=== PATIENT | female | born 1960 | race Caucasian/White ===

== ENCOUNTER 2020-06-24 07:22 | Outpatient (REF) | payer OTHER, SELFPAY ==
--- NOTE | ~2020-06-24 | MM_ITS ---
EXAMINATION: MM SCREENING DIGITAL BREAST TOMOSYNTHESIS, BILATERAL CLINICAL INFORMATION: Screening. Asymptomatic. Personal history left breast cancer 2006. COMPARISON: Mammography: 06/19/2019, 06/08/2018, 05/25/2017 TECHNIQUE: Digital breast tomosynthesis is performed in both the craniocaudal and mediolateral oblique views along with computer-aided detection (CAD). Synthesized 2D images are generated from the tomosynthesis. FINDINGS: There are scattered areas of fibroglandular density (ACR BI-RADS breast composition Category b). There are no significant masses, abnormal calcifications, or other abnormalities. Parenchymal pattern is similar to prior studies. Again, there are regional punctate calcifications central and upper right breast with biopsy clip marker. The axilla and skin contours are unremarkable. MM/MM tomosynthesis screening BI IMPRESSION: No mammographic evidence of malignancy. ASSESSMENT: BI-RADS 2: Benign RECOMMENDATION: Routine annual mammography screening. This patient's information was entered into a reminder system with a target due date for their next mammogram.
== END 2020-06-24 07:23 | disposition home or self-care (01) ==
LOC: HO.MAMMO 07:22
PROVIDERS: PCP Internal Medicine; Visit Provider Internal Medicine
DX: Z12.31 Encounter for screening mammogram for malignant neoplasm of breast (principal)
CPT/HCPCS: 77063; 77067

== ENCOUNTER 2020-09-18 09:39 | Day surgery (SDC) | payer OTHER, SELFPAY ==
[2020-09-14 10:45] VITALS: BMI 24.4
--- NOTE | 2020-09-16 13:15 | P.CONAN_ITS ---
Documented by User: Veda Stapleton 09/16/20 13:16 HPI - Anesthesia Eval Consult details Narrative: 60yo F for Colonoscopy PMFSH Past Medical History Medical History COVID-19 vaccine series completed HX: breast cancer Mitral valve regurgitation Surgical History Surgical History History of lumpectomy of left breast History of surgery on arm Hx of colonoscopy Social History Social History Smoking Status: Never smoker Use of substances other than those prescribed or required for medical reasons: No Are you DNR?: No Advance Directives: No Advance Directives Information Provided: No Advance Directives on File: No Meds Allergies Allergy/AdvReac Type Severity Reaction Status Date / Time sulfamethoxazole AdvReac Intermediate ORAL THRUSH Verified 09/18/20 09:51 [From BACTRIM] trimethoprim [From BACTRIM] AdvReac Intermediate ORAL THRUSH Verified 09/18/20 09:51 Home Medications Medication Instructions Recorded Confirmed Last Taken Type alendronate 1 tab PO QWEEK 09/14/20 09/14/20 Unknown History calcium carbonate-vitamin D3 1 tab PO DAILY 09/14/20 09/14/20 Unknown History [Calcium 500 + D] glucosamine sulfate [Glucosamine] 1,000 mg PO DAILY 09/14/20 09/14/20 Unknown H istory ibuprofen 400 mg PO Q8H PRN 09/14/20 09/14/20 Unknown History multivitamin 1 tab PO DAILY 09/14/20 09/14/20 Unknown History trazodone 1 tab PO BEDTIME 09/14/20 09/14/20 Unknown History Exam Exam Date and Time: September 16, 2020 1315 Height,Weight and Vital Signs: Height 5 ft 5 in Weight 66.678 kg Assessment and Plan Assessment Anesthesia Assessment: Chart Reviewed Documented by User: Roxy Terrazas 09/18/20 11:08 [facility] Past Medical History Medical History COVID-19 vaccine series completed HX: breast cancer Mitral valve regurgitation Surgical History Surgical History History of lumpectomy of left breast History of surgery on arm Hx of colonoscopy Social History Social History Smoking Status: Never smoker Use of substances other than those prescribed or required for medical reasons: No Are you DNR?: No Advance Directives: No Advance Directives Information Provided: No Advance Directives on File: No Meds Allergies Allergy/AdvReac Type Severity Reaction Status Date / Time sulfamethoxazole AdvReac Intermediate ORAL THRUSH Verified 09/18/20 09:51 [From BACTRIM] trimethoprim [From BACTRIM] AdvReac Intermediate ORAL THRUSH Verified 09/18/20 09:51 Home Medications Medication Instructions Recorded Confirmed Last Taken Type alendronate 1 tab PO QWEEK 09/14/20 09/14/20 Unknown History calcium carbonate-vitamin D3 1 tab PO DAILY 09/14/20 09/14/20 Unknown History [Calcium 500 + D] glucosamine sulfate [Glucosamine] 1,000 mg PO DAILY 09/14/20 09/14/20 Unknown History ibuprofen 400 mg PO Q8H PRN 09/14/20 09/14/20 Unknown History multivitamin 1 tab PO DAILY 09/14/20 09/14/20 Unknown History trazodone 1 tab PO BEDTIME 09/14/20 09/14/20 Unknown History Exam Airway Mallampati Class: II TM Dist: >3cm Neck ROM: Full Assessment and Plan Assessment Anesthesia Assessment: Anesthesia Plan Discussed and Chart Reviewed Final Anesthetic Review NPO: Yes ASA Class: II Final Preanesthetic Review: No Changes in Pt Med Stat, Meds/Allgs Chart Reviewed, Consent Obtained/Reviewed and Anes Risks/Benef Reviewed Patient Risk: Low Procedure Risk: Low Assessment/Block/Sedation in SS: Assess/Block/Sedation-SS Anesthetic Plan Anesthetic Plan: MAC: Disposition: Standard PACU
[2020-09-18 10:24] VITALS: BP 114/86; PULSE 65; RESP 18; TEMP 37.1; O2SAT 96
[2020-09-18] MEDS: Lactated Ringers 1,000 ML 100 ML IVCONT (10:36)
[2020-09-18 11:43] VITALS: BP 110/59; PULSE 68; RESP 16; TEMP 36.5; O2SAT 100
--- NOTE | 2020-09-18 11:46 | P.BOP_ITS ---
Brief Operative Note Date of Service: 09/18/20 Pre-op diagnosis: Screening, Family history Post-op diagnosis: other (Diverticulosis, Internal hemorrhoids) Procedure: Colonoscopy to the cecum and TI Surgeon: Lito Metz Anesthesia: MAC Was an Accounts Supervisor used for this Procedure?: No Estimated blood loss (mL): 0 Pathology: none sent Condition: stable Disposition: PACU
[2020-09-18 11:58] VITALS: BP 114/68; PULSE 66; RESP 18; O2SAT 99
--- NOTE | 2020-09-18 12:08 | OP_ITS ---
SURGEON: Lito Metz MD INDICATIONS: The patient presents for evaluation of colorectal cancer screening and family history of colon cancer. Full consent has been obtained from her for this, including risks of bleeding and perforation. PREOPERATIVE DIAGNOSIS: POSTOPERATIVE DIAGNOSIS: PROCEDURE PERFORMED: Colonoscopy to the cecum and terminal ileum. ESTIMATED BLOOD LOSS: COMPLICATIONS: ANESTHESIA: Monitored anesthesia care. ASSISTANTS: SPECIMENS: PREOPERATIVE DIAGNOSES: Colorectal cancer screening and family history of colon cancer. POSTOPERATIVE DIAGNOSES: Colorectal cancer screening and family history of colon cancer, mild sigmoid diverticulosis, small internal hemorrhoids. DESCRIPTION OF PROCEDURE: The patient was placed in the left lateral decubitus position. The digital rectal exam revealed no abnormalities. The Olympus video pediatric colonoscope was entered into the rectum and advanced easily to the cecum. Once in the cecum, I did identify normal-appearing cecal pouch with appendiceal orifice and a normal-appearing ileocecal valve. The entire cecum and ileocecal valve appeared normal. The terminal ileum was cannulated and appeared normal. The scope was slowly withdrawn assessing all mucosal surfaces carefully. Preparation was excellent. I did not visualize any sign of polyps, colitis, nor angiodysplasia. There was a mild amount of sigmoid diverticulosis. In the rectum, scope was retroflexed visualizing internal hemorrhoids, but no other pathology. The rectal mucosa appeared normal. The scope was straightened out and withdrawn from the patient. She tolerated the procedure well and was returned to the recovery area in stable condition. IMPRESSION: 1. Mild sigmoid diverticulosis. 2. Small internal hemorrhoids. PLAN: Given her significant family history of her young brother having had colon cancer, I would recommend a followup colonoscopy in 5 years for further screening purposes. She will otherwise see me on a p.r.n. basis. MD NATHANIEL Faustin/YULIA / [id number]
== END 2020-09-18 12:30 | disposition home or self-care (01) ==
PROVIDERS: PCP Internal Medicine; Visit Provider Internal Medicine
PROC: 0DJD8ZZ Inspection of Lower Intestinal Tract, Via Natural or Artificial Opening Endoscopic (ICD-10-PCS; CPT 45378; principal; 2020-09-18 11:00)
DX: Z12.11 Encounter for screening for malignant neoplasm of colon (principal); Z80.0 Family history of malignant neoplasm of digestive organs; K57.30 Diverticulosis of large intestine without perforation or abscess without bleeding; K64.8 Other hemorrhoids; Z79.899 Other long term (current) drug therapy; Z85.3 Personal history of malignant neoplasm of breast; Z92.3 Personal history of irradiation; Z88.2 Allergy status to sulfonamides
CPT/HCPCS: 45378

== ENCOUNTER 2021-02-18 08:06 | Outpatient (REF) | payer OTHER, SELFPAY ==
--- NOTE | ~2021-02-18 | MM_ITS ---
EXAMINATION: BONE DENSITOMETRY CLINICAL INDICATION: Osteoporosis. COMPARISON: Previous BD dated 01/23/2019 and baseline BD dated 02/12/2007. TECHNIQUE: Using a [employer] DXA System (software version: 13.1) manufactured by [employer], dual-energy x-ray absorptiometry was performed of the lumbar spine and left hip. The images are of good technical quality. Summary results are attached. FINDINGS: AP SPINE L1-L4: Current: BMD 0.989 g/cm2, Z-score -0.5, T-score -1.6, osteopenia, 5.2% increase from previous, 8.9% decrease from baseline (<5% change is not significant). Prior: BMD 0.940 g/cm2. Baseline: BMD 1.086 g/cm2. LEFT FEMUR, NECK: Current: BMD 0.778 g/cm2, Z-score -0.7, T-score -1.9, osteopenia. Prior: BMD 0.745 g/cm2. Baseline: BMD 0.842 g/cm2. LEFT FEMUR, TOTAL: Current: BMD 0.846 g/cm2, Z-score -0.4, T-score -1.3, osteopenia, 4.8% increase from previous, 4.2% decrease from baseline (<5% change is not significant). Prior: BMD 0.807 g/cm2. Baseline: BMD 0.883 g/cm2. IDENTIFIED RISK FACTORS: Osteoporosis, height loss, menopause. HISTORY OF FRACTURE: None listed. MEDICATIONS: Calcium supplements or multivitamin, vitamin D, bisphosphonate. MM/XR DEXA axial skeleton IMPRESSION: 1. DIAGNOSIS: Osteopenia based on the lowest T-score value of -1.9 in the femoral neck applying World Health Organization criteria. 2. 10-YEAR FRACTURE RISK PREDICTION, FRAX: Major osteoporotic fracture (clinical spine, forearm, hip or shoulder) 9.5%. Hip fracture 1.1%. 3. Treatment Recommendations: NOF guidelines recommend consideration for treatment in postmenopausal women and men age 50 and older presenting with the following: -A hip or vertebral (clinical or morphometric) fracture. -T-score less than or equal to -2.5 at the femoral neck or spine after appropriate evaluation to exclude secondary causes. -Low bone mass at the hip or spine and a 10-year fracture probability by FRAX of greater than or equal to 3% for hip fracture or greater than or equal to 20% for major osteoporotic fracture based on the [place] adapted WHO algorithm. 4. Other Recommendations: All treatment decisions require clinical judgment and consideration of individual patient factors, including patient preferences, comorbidities, previous drug use, risk factors not captured in the FRAX model (e.g. frailty, falls, vitamin D deficiency, increased bone turnover, interval significant decline in bone density) and possible under or overestimation of fracture risk by FRAX. Additional medical evaluation for secondary cause of low bone mineral density may be appropriate. FUTURE SCAN RECOMMENDATION: People with diagnosed cases of osteoporosis or at high risk for fracture should have regular bone mineral density tests. For patients eligible for Medicare, routine testing is allowed once every 2 years. The testing frequency can be increased to one year for patients who have rapidly progressing disease, those who are receiving or discontinuing medical therapy to restore bone mass, or have additional risk factors.
== END 2021-02-18 08:07 | disposition home or self-care (01) ==
LOC: HO.MAMMO 08:06
PROVIDERS: Visit Provider Nurse Practitioner Family
DX: M81.0 Age-related osteoporosis without current pathological fracture (principal); Z78.0 Asymptomatic menopausal state
CPT/HCPCS: 77080

== ENCOUNTER 2021-07-02 08:42 | Outpatient (REF) | payer OTHER, SELFPAY ==
--- NOTE | ~2021-07-02 | MM_ITS ---
EXAMINATION: MM SCREENING DIGITAL BREAST TOMOSYNTHESIS, BILATERAL CLINICAL INFORMATION: Left lumpectomy for breast cancer, 2007. Annual screening. Family history breast cancer. COMPARISON: Mammography: 06/24/2020, 06/19/2019, 06/08/2018 TECHNIQUE: Digital breast tomosynthesis is performed in both the craniocaudal and mediolateral oblique views along with computer-aided detection (CAD). Synthesized 2D images are generated from the tomosynthesis. Additional exaggerated left CC view is provided. FINDINGS: There are scattered areas of fibroglandular density (ACR BI-RADS breast composition Category b). Parenchymal pattern is similar to prior studies. There is no interval mass or architectural abnormality or developing density. Right breast again has biopsy clip marker central breast mid depth and regional calcifications central anterior right breast. There is no significant mass. The axilla and skin contours are unremarkable. No significant changes. MM/MM tomosynthesis screening BI IMPRESSION: No significant changes from prior studies. ASSESSMENT: BI-RADS 2: Benign RECOMMENDATION: Routine annual mammography screening. This patient's information was entered into a reminder system with a target due date for their next mammogram.
== END 2021-07-02 08:43 | disposition home or self-care (01) ==
LOC: HO.MAMMO 08:42
PROVIDERS: Visit Provider Internal Medicine
DX: Z12.31 Encounter for screening mammogram for malignant neoplasm of breast (principal)
CPT/HCPCS: 77063; 77067

== ENCOUNTER 2022-07-20 08:40 | Outpatient (REF) | payer OTHER, SELFPAY ==
--- NOTE | ~2022-07-20 | MM_ITS ---
EXAMINATION: MM SCREENING DIGITAL BREAST TOMOSYNTHESIS, BILATERAL CLINICAL INFORMATION: Screening. Asymptomatic. Left breast cancer status post lumpectomy, 2006. COMPARISON: Multiple prior mammography exams, most recent 07/02/2021. TECHNIQUE: Digital breast tomosynthesis is performed in both the craniocaudal and mediolateral oblique views along with computer-aided detection (CAD). Synthesized 2D images are generated from the tomosynthesis. FINDINGS: There are scattered areas of fibroglandular density (ACR BI-RADS breast composition Category b). Parenchymal pattern is similar to prior exams. No interval mass or developing density or architectural abnormality. Biopsy clip marker again seen central right breast. There are some scattered regional punctate calcifications central right breast similar to prior exams. The axilla are unremarkable. There are no significant changes. MM/MM tomosynthesis screening BI IMPRESSION: No mammographic evidence of malignancy. ASSESSMENT: BI-RADS 2: Benign RECOMMENDATION: Routine annual mammography screening. This patient's information was entered into a reminder system with a target due date for their next mammogram.
== END 2022-07-20 08:41 | disposition home or self-care (01) ==
LOC: HO.MAMMO 08:40
PROVIDERS: PCP Internal Medicine; Visit Provider Internal Medicine
DX: Z12.31 Encounter for screening mammogram for malignant neoplasm of breast (principal)
CPT/HCPCS: 77063; 77067

== ENCOUNTER 2023-07-22 08:25 | Outpatient (REF) | payer OTHER, SELFPAY ==
--- NOTE | ~2023-07-22 | MM_ITS ---
EXAMINATION: MM SCREENING DIGITAL BREAST TOMOSYNTHESIS, BILATERAL CLINICAL INFORMATION: Screening. Asymptomatic. Left breast cancer status post lumpectomy, 2006. COMPARISON: Mammography: 07/18/2022, 07/02/2021, 06/24/2020, 06/19/2019, 06/08/2018 and dating back to 2013. TECHNIQUE: Digital breast tomosynthesis is performed in both the craniocaudal and mediolateral oblique views along with computer-aided detection (CAD). Synthesized 2D images are generated from the tomosynthesis. Additional exaggerated left CC view was provided. FINDINGS: There are scattered areas of fibroglandular density (ACR BI-RADS breast composition Category b). Once again, stable scarring left breast laterally from prior lumpectomy. No change in the overall appearance. No suspicious calcifications identified. Scattered punctate calcifications bilaterally are again noted without significant change. Post benign biopsy clip present in the 12:00 axis of the right breast, middle one third. No developing architectural distortion or suspicious mass. There are no axillary abnormalities or skin abnormalities identified. MM/MM tomosynthesis screening BI IMPRESSION: -No mammographic evidence of malignancy. -Stable benign findings. ASSESSMENT: BI-RADS BI-RADS 2 - Benign Findings RECOMMENDATION: Routine annual mammography screening. 1 year F/U This examination should not preclude the clinical evaluation of a suspicious palpable abnormality. This patient's information was entered into a reminder system with a target due date for their next mammogram.
== END 2023-07-22 08:26 | disposition home or self-care (01) ==
LOC: HO.MAMMO 08:25
PROVIDERS: PCP Internal Medicine; Visit Provider Internal Medicine
DX: Z12.31 Encounter for screening mammogram for malignant neoplasm of breast (principal)
CPT/HCPCS: 77063; 77067

== ENCOUNTER → 2023-07-22 08:45 | Outpatient (BNV) | payer OTHER, SELFPAY | PROVIDERS: PCP Internal Medicine; Visit Provider Radiology Diagnostic Radiology | DX: Z12.31 Encounter for screening mammogram for malignant neoplasm of breast (principal) | CPT/HCPCS: 77063; 77067 ==

== ENCOUNTER 2024-08-03 08:20 | Outpatient (REF) | payer OTHER, SELFPAY ==
--- OUTSIDE RECORDS SUMMARY | 2024-08-03 08:22 | XMS_ITS | Patient Health Record ---
Author Organization [facility] Address [address] [address] Support Name Relationship Address Phone PERRI BARRY Guarantor Unknown [phone] Reason For Referral No Information Medications Medication SIG (Take, Route, Fr equency, Duration) Notes Start Date End Date Status Multivitamins 1 ORAL daily for -3 [facility] 05/04/2012 Active miSOPROStol 200MCG 2 ORAL NIGHT BEFORE PROCEDURE for -3 [facility] [place] 05/21/2012 Active Calcium 1200 ORAL daily for -3 [facility] [place] 05/04/2012 Active Problems Problem Type SNOMED Code ICD Code Onset Dates Problem Status W/U Status Risk Notes Problem Postmenopausal bleeding (13175037) Postmenopausal bleeding (627.1) Active confirmed Major Plan Of Treatment No Information Insurance Providers Payer Name Payer Address Payer Phone Subscriber Number Group Number Insured Name Patient Relationship to Insured Coverage Start Date Coverage End Date [employer] [address] [place] [address] [id number] PERRI KNOX Self - patient is the insured
--- OUTSIDE RECORDS SUMMARY | 2024-08-03 08:22 | XMS_ITS | Clinical Summary ---
Author Organization [facility] Address [address] [employer] [facility] [address] [place] [address] Phone Care Team Providers Care Material Damage Adjuster Name Role Phone Aziza Roberts MD Primary Care Provider [phone] Allergies Active Allergy Reactions Criticality Noted Date Comments Sulfamethoxazole-Trimethoprim Other (See Comments) 03/03/2017 thrush Medications Medication Sig Dispensed Refills Start Date End Date Status therapeutic multivitamin tablet Take 1 tablet by mouth daily. Active calcium carbonate-vitamin D3 1,250 mg (500 mg elemental)-400 units per tablet Take 1 tablet by mouth daily. Active glucosamine-chond roitin 500-400 mg Cap Take 1 capsule by mouth daily. Active bacillus coagulans-inulin 1 billion-250 cell-mg Cap Take 250 mg by mouth daily. Active COLLAGEN MISCIndications:p owder, one scoop daily in coffee. ? mg by Miscellaneous route. Indications: powder, one scoop daily in coffee. ? mg Active fluticasone propionate (FLONASE) 50 mcg/actuation nasal spray 1 spray by Nasal route daily. Active traZODone (DESYREL) 50 MG tabletIndications :Psychophysiologi ray insomnia TAKE 1 TABLET NIGHTLY AT BEDTIME 90 tablet 3 4 Active mv-mn/om3/dha/epa /fish/lut/edwina (OCUVITE ADULT 50 PLUS ORAL) 4 Active alendronate (FOSAMAX) 70 MG tablet TAKE 1 TABLET EVERY 7 DAYS 12 tablet 3 5 Active alendronate (FOSAMAX) 70 MG tablet TAKE 1 TABLET EVERY 7 DAYS 12 tablet 3 4 07/23/19 25 Discontinued Active Problems Problem Noted Date Diagnosed Date History of squamous cell carcinoma of skin 01/03 Overview (01/03/2023): right lower leg 2021, followed by [facility] Osteopenia 01/03/2023 Family history of colon cancer 12/30/2020 History of breast cancer 12/20/2018 Psychophysiological insomnia 12/20/2018 Environmental and seasonal allergies 12/20/2018 Plantar fasciitis of left foot 12/20/2018 Encounters Date Type Department Care Team Description 07/20/2024 Refill [facility] [address] [place] [address] [place] [address] Aziza Roberts MD Medication Refill 05/30/2024 7:36 AM EST - 05/30/2024 11:59 PM EST Hospital Encounter [facility], Bone Density - [address] [address] Aziza Roberts MD Discharge Disposition: Home or Self Care from Last 3 Months Immunizations Name Administration Dates Next Due COVID-19 (Pre-02/20) Pfizer Vaccine, mRNA, PF 08/15/2020,07/25/2020 Influenza Quadrivalent MDCK Preservative Free IM 01/20/2022 Influenza Quadrivalent Prese rvative Free IM 02/09/2023,01/24/2021,01/29/2020,2016 Influenza Trivalent Preserva tive Free IM 01/09/2024 Influenza Trivalent w/ Prese rvative IM 02/12/2020 Td (adult) 5 Lf Tetanus Toxo id, PF, Adsorbed 12/30/2020 Tdap 09/30/2010 Zoster recombinant 10/16/2020,05/29/2020 Family History Medical History Relation Comments Colon cancer Brother Stroke Father CV disease Maternal Grandfather Breast cancer Maternal Grandmother Cancer Mother Waldenstrom macroglobulinemia Mother Breast cancer Paternal Grandmother Cancer Sibling 1 Hypertension Sibling 1 Breast cancer Sister Hypertension Son 1 No Known Problems Son 2 Relation Status Comments Brother Father Maternal Grandfather Maternal Grandmother Mother Jorge blo od cancer Paternal Grandmother Sibling 1 breast cancer ag e 54 Sibling 2 Sister Alive Son 1 Alive Son 2 Motorcycle accid ent July 2020 Social History Tobacco Use Types Packs/Day Years Used Date Smoking Tobacco: Never Smokeless Tobacco: Never Alcohol Use Standard Drinks/Week Comments Not Currently 0 (1 standard drink = 0.6 oz pur e alcohol) infrequent Child or Family Care Answer Date Record ed Do you have problems with on e of the following making it difficult for you to work, study, or receive health care? No 01/08/2024 Education Answer Date Recorded Are you interested in help w ith more adult education (for example, completing high school, GED, job training, learning the Malay language, technical skills, or developing parenting skills)? No 01/08/2024 Are you concerned about learning? Not on file 01/08/2024 No 01/08/2024 Yes 01/08/2024 Food Answer Date Recorded Within the past 6 months we worried whether our food would run out before we got money to buy more. Never True 01/08/2024 Within the past 6 months the food we bought just didn't last and we didn't have enough money to get more. Never True Residential Stability Answer Date Recor ded What is your housing situation today? I have julian tinoco 01/08/2024 How many times have you move d in the past 12 months? Zero (I did not move) 01/08/2024 Paying for Meds Answer Date Recorded Do you have trouble paying for medicines? No 01/08/2024 Paying Utility Bills Answer Date Record ed Do you have trouble paying your heating or elect ricity bill? No 01/08/2024 Transportation Answer Date Recorded Has the lack of transportati on kept you from medical appointments or from getting medications? No 01/08/2024 Unemployment Answer Date Recorded Are you currently unemployed or working on a part-time or temporary basis, and looking for work? No 12/29/2021 Digital Access Answer Date Recorded No 01/08/2024 Yes 01/08/2024 Do you have reliable internet access at home? Ye s 01/08/2024 Do you have a device (e.g., phone, tablet, computer) with a working camera? Yes 01/08/2024 Intimate Partner Violence Answer Date R ecorded Denied Basic Needs Not on file 01/08/2024 In the past 12 months have y ou been in a relationship with a person who hurts, threatens, or tries to control you? No 01/08/2024 Worried food would run out Not on file 01/07 In the past 12 months have y ou been in a relationship with a person who hurts, threatens, or tries to control you? No 01/08/2024 Sex and Gender Information Value Date Recorded Sex Assigned at Female 05/08/2017 9:38 AM EST Gender Identity Female 05/08/2017 9:38 AM EST Sexual Orientation Straight 05/08/2017 9: 38 AM EST Last Filed Vital Signs Vital Sign Reading Time Taken Comments Blood Pressure 118/84 01/09/2024 8:52 AM EDT Pulse 64 01/09/2024 8:52 AM EDT Temperature 36.6 ??C (97.8 ??F) 01/09/2024 8:52 AM ED T Respiratory Rate 16 01/03/2023 8:49 AM EDT Oxygen Saturation 100% 01/09/2024 8:52 AM EDT Inhaled Oxygen Concentration - - Weight 70.4 kg (155 lb 3.2 oz) 01/09/2024 8:52 A M EDT Height 164.5 cm (5' 4.76 ) 01/09/2024 8:52 AM ED T Body Mass Index 26.02 01/09/2024 8:52 AM EDT Plan of Treatment Upcoming Encounters Date Type Department Care Team (Late st Contact Info) Description 01/13/2025 8:30 AM EDT Office Visit [facility] [address] [place] [address] [place] [address] Aziza Roberts MD [address] [place] [address], [address] [place] [address] [email or web address] Health Maintenance Due Date Last Done Comments COLOGUARD 01/17/2005 FIT TEST 01/17/2005 FOBT 01/17/2005 SIGMOIDOSCOPY 01/17/2005 VIRTUAL COLONOSCOPY 01/17/2005 PNEUMOCOCCAL VACCINES (50+ years) (1 of 1 - PCV) 01/17/2010 COVID-19 VACCINE ( season) 2023 02/09/2023, 01/20/2022, 10/18/2021, Additional history exists DEPRESSION SCREENING 01/07/2025 01/08/2024 MAMMOGRAM 07/21/2025 07/22/2023, 06/30, 07/09/2021, Additional history exists COLONOSCOPY 09/18/2025 09/18/2020, 03/18/2010 COLORECTAL CANCER SCREENING 09/18/2025 FOLLOW UP BONE DENSITY TESTING 05/30/2026 05/30/2024, 01/03/2023, 02/18/2021, Additional history exists SCREENING FOR DIABETES 12/11/2026 12/12/2023 PAP SMEAR 12/31/2026 12/31/2021, 06/2016, 03/03/2017 LIPID PANEL 12/11/2028 12/12/2023, 08/2022, 12/30/2020, Additional history exists Adult Td,Tdap Booster 12/30/2030 12/30/2020, 011 RSV VACCINE (1 - 1-dose 75+ series) 01/17/2035 HEPATITIS C SCREENING Completed 12/25/2019 HIV ONE-TIME SCREENING (18-65 YEARS) Completed 12/25/2019 ZOSTER VACCINES Completed 10/16/2020, 05/29/2020 INFLUENZA VACCINE Completed 01/09/2024, , 01/20/2022, Additional history exists SMOKING STATUS SCREENING (Once After 26 Yrs) Completed 01/09/2024 HEPATITIS A VACCINES Aged Out No long er eligible based on patient's age to complete this topic HIB VACCINES Aged Out No longer eligi ble based on patient's age to complete this topic MENINGOCOCCAL VACCINES (ACWY) Aged Out No longer eligible based on patient's age to complete this topic Medical Devices Not on file Procedures Procedure Name Priority Date/Time Associated Diagnosis Comments BD DXA AXIAL (SPINE) WITH HIP Routine 05/30/2024 7:52 AM EST Osteopenia, unspecified location LIPID PANEL Routine 12/12/2023 8:53 AM EDT Pure hypercholesterolemia HM MAMMOGRAPHY Routine 07/22/2023 1:52 PM EDT PAP TEST Routine 12/31/2021 12:00 AM EDT COLONOSCOPY FOR RESULT ENTRY ONLY Routine 09/18/2020 HEPATITIS C ANTIBODY, QUALITATIVE Routine 12/25/2019 3:37 PM EDT Routine general medical examination at a health care facility from Last 3 Months or Most Recently Relevant to Health Maintenance Results * BD DXA AXIAL (SPINE) WITH HIP (05/30/2024 7:52 AM EST) Anatomical Region Laterality Modality Bone Density Bone Density 05/30/2024 7:51 AM EST Impressions 05/30/2024 7:57 AM EST Interpretation: Osteoporosis. ? Narrative 05/30/2024 7:57 AM EST Referred By: ??ELROY, AZIZA A Indications: Osteoporosis ? Scanner: [employer] A with serial# of [id number] located at [facility] ? Bone Density Scan (DXA) 05/30/24 ? Details of prior DXA scans are available by clicking View Image ? BMD ? T- ? Z- ? Skeletal Site ?gm/cm2 ??score ??score ??BMD Change Since Prior Scan ?------ ??----- ??----- ?? PA Spine (L1-L4) ? 0.772 ?? -2.50 ??-0.80 ??N/A ? Total Hip (Left) ? 0.734 ?? -1.70 ??-0.50 ??N/A ? Femoral Neck (Left) ?0.641 ?? -1.90 ??-0.40 ??N/A ? Total Hip (Right) ?0.754 ?? -1.50 ??-0.40 ??N/A ? Femoral Neck (Right) ?? 0.670 ?? -1.60 ??-0.10 ??N/A ?------ ??----- ??----- ?? * Denotes significant change when >= 0.022 g/cm2 for the spine, 0.027 g/cm2 ?? for the total hip, 0.029 g/cm2 for the femoral neck. ? Interpretation: Osteoporosis. ? Technical Quality: Imaging of all sites was of adequate quality. ? FRAX: A FRAX(r) score is not provided because the patient has osteoporosis, ?? which is generally an indication for treatment. ? Additional Information: -World Health Organization criteria classify adults based on lowest T-score ?? at HI spine, hip or forearm: Normal (T-score >= -1.0), Osteopenia (T-score ? between -1 and -2.5), or Osteoporosis (T-score <= -2.5). ??At [facility], ? T-scores are compared to peak bone density of a young white gender matched ? reference population. ? - For premenopausal women and men under the age of 50, Z-scores (comparison ?? to age, gender, and ethnicity matched reference population) are used: Above ?? expected range for age (Z-score >= 2.0), Within expected range of age ? (Z-score 1.9 to -1.9), or Below expected range for age (Z-score <= -2.0). ? - The Bone Health and Osteoporosis Foundation recommends that treatment be ? considered in men aged more than 50 years and in postmenopausal women with ? ANY of the following: Prior hip or vertebral fractures; T-score of <= -2.5 ? at the PA spine or hip; or 10 year fracture probability by FRAX of >= 3% for ?? the hip or >= 20% for major osteoporotic fracture. ? - The FRAX algorithm (https://www.rain.ac.uk/FRAX/tool.aspx) is ? designed to predict 10-year fracture risk in treatment-naive adults between ?? the ages of 40 and 90. It is not intended to be used in those receiving ? pharmacologic osteoporosis treatment. ? - Including race/ethnicity in the generation of T- or Z-scores or in the ? FRAX calculation is complicated, and currently undergoing active review to ? ensure that we can give patients the best information on their risk of ? fracture. ? -Some prior studies may not be compatible with our comparison software. ? -Click on View Full Report to see subsequent pages with images and prior ? bone density results. ? Reviewed By: Candido Camilo MD on 05/30/2024 07:57:26 Procedure Note Candido Camilo MD - 05/30/2024 Referred By: AZIZA ROBERTS Indications: Osteoporosis Scanner: [employer] with serial# of [id number] [facility] Bone [facility]ensity Scan (DXA) 05/30/24 Details of prior DXA scans are available by clicking View Image BMD T- Z- Skeletal Site gm/cm2 score score BMD Change Since Prior Scan ------ ----- PA Spine (L1-L4) 0.772 -2.50 -0.80 N/A Total Hip (Left) 0.734 -1.70 -0.50 N/A Femoral Neck (Left) 0.641 -1.90 -0.40 N/A Total Hip (Right) 0.754 -1.50 -0.40 N/A Femoral Neck (Right) 0.670 -1.60 -0.10 N/A ------ ----- * Denotes significant change when >= 0.022 g/cm2 for the spine, 0.027g/cm2 for the total hip, 0.029 g/cm2 for the femoral neck. Interpretation: Osteoporosis. Technical Quality: Imaging of all sites was of adequate quality. FRAX: A FRAX(r) score is not provided because the patient hasosteoporosis, which is generally an indication for treatment. Additional Information: -World Health Organization criteria classify adults based on lowestT-score at PA spine, hip or forearm: Normal (T-score >= -1.0), Osteopenia (T-score between -1 and -2.5), or Osteoporosis (T-score <= -2.5). At [facility], T-scores are compared to peak bone density of a young white gender matched reference population. - For premenopausal women and men under the age of 50, Z-scores(comparison to age, gender, and ethnicity matched reference population) are used:Above expected range for age (Z-score >= 2.0), Within expected range of age (Z-score 1.9 to -1.9), or Below expected range for age (Z-score <= -2.0). - The Bone Health and Osteoporosis Foundation recommends that treatment be considered in men aged more than 50 years and in postmenopausal women with ANY of the following: Prior hip or vertebral fractures; T-score of <= -2.5 at the PA spine or hip; or 10 year fracture probability by FRAX of >= 3%for the hip or >= 20% for major osteoporotic fracture. - The FRAX algorithm (https://www.rain.ac.uk/FRAX/tool.aspx) is designed to predict 10-year fracture risk in treatment-naive adultsbetween the ages of 40 and 90. It is not intended to be used in those receiving pharmacologic osteoporosis treatment. - Including race/ethnicity in the generation of T- or Z-scores or in the FRAX calculation is complicated, and currently undergoing active review to ensure that we can give patients the best information on their risk of fracture. -Some prior studies may not be compatible with our comparison software. -Click on View Full Report to see subsequent pages with images and prior bone density results. Reviewed By: Candido Camilo MD on 05/30/2024 07:57:26 IMPRESSION: Interpretation: Osteoporosis. Aziza A Elroy COTE IMG BD BONE DENSITY DEXA * (ABNORMAL) Lipid panel (12/12/2023 8:53 AM EDT) HDL 94 mg/dL [facility] Comment: ? Interpretation <40 mg/dL: Low HDL cholesterol (major risk factor for CHD) Greater than or equal to 60 mg/dL: High HDL cholesterol ( negative risk factor for CHD) HDL - cholesterol is affected by a number of factors, e.g. smoking, excerise, hormones, sex and age. CHOLESTEROL 232 0 - 240 mg/dL [facility] TRIGLYCERIDES 57 30 - 160 mg/dL [facility] LDL 127 50 - 129 mg/dL [facility] Comment: LDL levels in terms of risk for coronary heart disease: <100 mg/dL: Optimal 100-129 mg/dL: Near or above optimal 130-159 mg/dL: Borderline high 160-189 mg/dL: High >190 mg/dL: Very High CARDIAC RISK RATIO 2.5(L) 3.3 - 4.4 C [facility] Blood 12/12/2023 8:53 AM EDT 12/12/2023 8:57 AM EDT Aziza Roberts MD LAB BLOOD ORDERABLES [address] [address] * HM MAMMOGRAPHY FOR RESULT ENTRY ONLY (07/22/2023 1:52 PM EDT) Bismark Poe MD HEALTH MAINTENANCE * Pap Smear (12/31/2021 12:00 AM EDT) 12/31/2021 01/04/2022 9:0 3 AM EDT Narrative SEE NARRATIVE - 01/06/2022 12:56 PM EDT [address] [address] [employer] Wheeler: Silvia Luther MD ?? SK[employer] Cytology Report FINAL DIAGNOSIS A. ??PAP SMEAR ([facility]) CE: SPECIMEN ADEQUACY: Satisfactory for evaluation; transformation zone absent/insufficient. Evaluation limited by scant cellularity. INTERPRETATION: NEGATIVE FOR INTRAEPITHELIAL LESION OR MALIGNANCY. Electronically Signed Out By: ??YARELY Pradhan(ASCP) The Pap test is a screening test primarily for squamous cancers and precursors and has associated false-negative and false-positive results. ??New technologies such as liquid-based preparations may decrease but will not eliminate all false-negative results. ??Regular sampling and follow-up of unexplained clinical signs and symptoms are recommended to minimize false negative results. PROCEDURES/ADDENDA HPV Testing (Requested) Ordered Date: 01/04/2022 ? A. PAP SMEAR ([employer]) CE: ??Human Papilloma Virus Test Negative for high-risk human papillomavirus types 16, 18, 45 and the Other high risk probe set (Includes 31, 33, 35, 39, 51, 52, 56, 58, 59, 66, 68) by Misha [facility] [employer] HR-HPV analysis. Clinical correlation is advised. This HPV test was performed at [facility], [address] [place] [address]. This test has been FDA approved for [facility] cervical cytology specimens. The accuracy and precision of this test for all other specimen sources has been verified in the Cytopathology Laboratory of the [facility] and has not been cleared or approved by the U.S. Food and Drug Administration. Clinical correlation is advised. ? CLINICAL HISTORY Date of Last Menstrual Period: ??Not Provided Menstrual History: ??Post Menopausal Other Clinical Conditions: ??Screening Pap SPECIMEN SOURCE A: PAP SMEAR (SUREPATH) CE Patient Name: ??PERRI BARRY : ??1960 (Age: 61) Sex: ??F [facility] Date of Collection: ??12/31/2021 Date of Reported: ??01/06/2022 10:47 Results to: Mackenzie Marrero MSN, BSN Mackenzie Marrero [facility] ORDERABLES SEE NARRATIVE * COLONOSCOPY FOR RESULT ENTRY ONLY (09/18/2020) Historical Provider MD DIANNA RENDON E * Hepatitis C antibody, qualitative (12/25/2019 3:37 PM EDT) HCV NON-REACTIV E NON-REACTI VE [facility] Blood 12/25/2019 3:37 PM EDT 12/25/2019 7:35 PM EDT Mackenzie Marrero NP LAB BLOOD ORDERABLES [facility] [address] [place] [address] from Last 3 Months or Most Recently Relevant to Health Maintenance Care Teams Material Damage Adjuster Relationship Specialty Start Date End Date Aziza Roberts MD [address] [place] [address], [address] [place] [address] PCP - General Internal Medicine 3/7/24 Additional Source Comments The information contained in this document represents components of the legal health record. It is not the complete legal health record.[facility]
--- OUTSIDE RECORDS SUMMARY | 2024-08-03 08:22 | XMS_ITS | Patient Health Record ---
Author Organization [facility] Address [address] [place] [address] Care Team Providers Care Photogrammetrist Name Role Phone Bismark Poe MD Primary Care Provider Lito Burden Unavailable [phone] Allergies Allergen (clinical drug ingredient) Drug/Non Drug Allergy documented on EMR Reaction Allergy Type Onset Date Status sulfamethoxazole / trimethoprim Bactrim Unknown Drug Allergy Active Reason For Referral No Information Medications Medication SIG (Take, Route, Frequency, Duration) Notes Start Date End Date Status Multi Vitamin/Minerals 1 1 Orally QD Active Calcium + D 315-200 MG-UNIT 1 tablet wit h meals Orally Twice a day Active Ibuprofen Active Glucosamine 500 MG 2 capsule with a quang l Orally Once a day Active traZODone HCl 50 MG Orally Active Fosamax 20 mg once a week Acti ve Immunizations Vaccine Route Administration Date Status Comme nts Influenza Unknown 02/12/2020 Administered Problems Problem Type SNOMED Code ICD Code Onset Dates Problem Status W/U Status Risk Notes Problem 384845051 Encounter for screening for malignant neoplasm of colon (Z12.11) Active confirmed Problem Screening for malignant neoplasm of rectum (474952896) Encounter for screening for malignant neoplasm of rectum (Z12.12) Active confirmed Problem 61636629 Preprocedural examination (Z01.818) Active confirmed Problem [id number] Family history o f colon cancer (Z80.0) Active confirmed Plan Of Treatment Future Test Test Name Order Date COLONOSCOPY 04/08/2015 COLONOSCOPY 08/12/2020 Insurance Providers Payer Name Payer Address Payer Phone Subscriber Number Group Number Insured Name Patient Relationship to Insured Coverage Start Date Coverage End Date [employer] [address] [place] [address] [id number] PERRI KNOX Self - patient is the insured Medical (General) History Medical History History ICD Code Screening colonoscopies 03-01 and 2004--- negative except for small internal hemorrhoids Denies CO,DM,CVA,Lung disease,renal dise ase Left breast cancer--2006--mona mpectomy, XRT, and Tamoxifen--- she sees Dr. Osei Negative screening colonoscopy in 2015 Surgical History Surgery Date(Month/Year) Lumpectomy, left breast for breast cance r-as above Left arm surgery--hydradinitis
== END 2024-08-03 08:21 | disposition home or self-care (01) ==
LOC: HO.MAMMO 08:20
PROVIDERS: PCP Internal Medicine; Visit Provider Internal Medicine
DX: Z12.31 Encounter for screening mammogram for malignant neoplasm of breast (principal)
CPT/HCPCS: 77063; 77067

== ENCOUNTER → 2024-08-03 08:30 | Outpatient (BNV) | payer OTHER, SELFPAY | PROVIDERS: PCP Internal Medicine; Visit Provider Internal Medicine | DX: Z12.31 Encounter for screening mammogram for malignant neoplasm of breast (principal) | CPT/HCPCS: 77063; 77067 ==